=== PATIENT | female | born 1995 | race Caucasian/White ===

== ENCOUNTER 2017-11-12 08:56 | Emergency (ER) | payer OTHER ==
[~2017-11-12] VITALS: Ht 165.1 cm; Wt 63.5 kg
[2017-11-12] MEDS ORDERED: ULTRAM 50MG TAB50 MG PO (09:10)
[2017-11-12] MEDS ORDERED: AMOXICILLIN 50500 MG PO (09:10)
[2017-11-12 09:20] VITALS: BP 134/88
[2017-11-12] MEDS ORDERED: CLEOCIN HCL150 MG PO (09:22)
== END 2017-11-12 09:29 | disposition home or self-care (01) ==
LOC: M.ERS 08:56
DX: K08.89 Other specified disorders of teeth and supporting structures (principal)